=== PATIENT | male | born 1975 | race Caucasian/White ===

== ENCOUNTER 2017-12-26 09:18 | Emergency (ER) | payer SELFPAY ==
[2017-12-26 09:30] VITALS: BP 141/83
[2017-12-26] MEDS ORDERED: DEXAMETHASONE 10 MG/ML VIAL PO STA (09:55)
--- NOTE | 2017-12-26 09:57 | ED Physician Documentation ---
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 He states it feels like he has icy hot on his thighs. He works installing tires on large equipment. He is here visiting [facility] and his pain is severe enough that he is not able to sit well and the pain is persisted and worsened. He has developed some constipation which he is able to relieve every 2 days this does relieve some of the pressure that he is feeling. He has not had a fever does not otherwise feel ill. He has no numbness to the perineum and he is able to urinate without difficulty. He does not feel a mass or a lump in the area and has no redness to the area. Review of Systems Constitutional: denies: Fever, Chills, Myalgias Eyes: denies: Decreased vision Ears: denies: Ear pain Nose: denies: Congestion Throat: denies: Sore throat Cardiac: denies: Chest pain / pressure, Palpitations Respiratory: denies: Dyspnea, Cough GI: reports: Constipation. denies: Abdominal Pain, Nausea, Vomiting : denies: Dysuria, Frequency, Incontinent Skin: denies: Rash Musculoskeletal: reports: Back pain, Extremity pain. denies: Neck pain Neurologic: denies: Generalized weakness, Focal weakness, Numbness PD PAST MEDICAL HISTORY - Present Medications Home Medications: Ambulatory Orders Medication Instructions Recorded Confirmed Dexamethasone [Decadron] 4 mg PO DAILY #5 tablet 12/26/17 HYDROcod/ACETAM 5/325 [[place] 5/325] 1 - 2 ea PO Q6H PRN #15 tablet 12/26/17 - Allergies Allergies/Adverse Reactions: Allergies Allergy/AdvReac Type Severity Reaction Status Date / Time No Known Drug Allergies Allergy Verified 12/26/17 09:27 PD ED PE NORMAL - Vitals Vital signs reviewed: Yes (Hypertensive mild) - General General: Alert and oriented X 3, No acute distress, Well developed/nourished - HEENT HEENT: Atraumatic, PERRL, EOMI - Neck Neck: Supple, no meningeal sign - Respiratory Respiratory: No respiratory distress - Back Back: No CVA TTP, Other (There is tenderness over the distal lumbar spine and lumbosacral junction without swelling or evidence of pilonidal cyst.) - Derm Derm: Normal color, Warm and dry, No rash - Extremities Extremities: No deformity, No tenderness to palpate, Normal ROM s pain, No edema , No calf tenderness / cord - Neuro Neuro: Alert and oriented X 3, press tender 2-12 intact, No motor deficit, No sensory deficit, Normal speech Eye Opening: Spontaneous Motor: Obeys Commands Verbal: Oriented GCS Score: 15 - Psych Psych: Normal mood, Normal affect Results - Vitals Vitals: Vital Signs - 24 hr 12/26/17 09:23 Temperature 37.6 C H Heart Rate 62 Respiratory 16 Rate Blood Pressure 141/83 H O2 Saturation 99 Oxygen O2 Source Room air PD MEDICAL DECISION MAKING - ED course Complexity details: considered differential, d/w patient, d/w family ED course: 42-year-old otherwise healthy male has been visiting here from [place] and he has tailbone pain that is preceded his visit this is not improving and is very uncomfortable. He does have some tenderness across the lower aspect of his tailbone and pain down the anterior thighs consistent with sciatica. I do not see evidence of cauda equina syndrome and I have discussed with the patient signs and symptoms to be concerned with an return to the emergency department including urinary incontinence rate or urinary retention or numbness in the perineum. Departure - Departure Disposition: 01 Home, Self Care Clinical Impression: Sciatica Qualifiers: Laterality: bilateral Qualified Code(s): M54.31 - Sciatica, right side; M54.32 - Sciatica, left side; M54.32 - Sciatica, left side Condition: Stable Instructions: ED Sciatica Follow-Up: Your, doctor [Other] Prescriptions: Dexamethasone [Decadron] 4 mg PO DAILY #5 tablet HYDROcod/ACETAM 5/325 [[place] 5/325] 1 - 2 ea PO Q6H PRN #15 tablet PRN Reason: Pain
[2017-12-26] MEDS ORDERED: CHERRY SYRUP 10 ML UDC PO ONE (10:10)
== END 2017-12-26 10:19 | disposition home or self-care (01) ==
LOC: ED 09:18
DX: M54.31 Sciatica, right side (principal); M54.32 Sciatica, left side
CPT/HCPCS: 99283; A9270